=== PATIENT | male | born 1980 | race Caucasian/White ===

== ENCOUNTER 2020-09-25 16:06 | Emergency (ER) | payer BC ==
[2020-09-25 17:53] LABS: HEMOGLOBIN 17.2 gm/dl (14.0-17.5); RED BLOOD COUNT 5.5 M/UL (4.20-5.50); WHITE BLOOD COUNT 10.1 K/UL (4.5-11.0)
[2020-09-25 18:06] LABS: BUN/CREATININE RATIO 11 (0-10)
== END 2020-09-25 20:57 | disposition home or self-care (01) ==
LOC: ER1 16:06
PROVIDERS: Physician Assistant
DX: M54.2 Cervicalgia (principal); R13.10 Dysphagia, unspecified; R07.9 Chest pain, unspecified; Z90.49 Acquired absence of other specified parts of digestive tract; F17.210 Nicotine dependence, cigarettes, uncomplicated
CPT/HCPCS: 70491; 71260; 80053; 82550; 82553; 83605; 83874; 84484; 85025; 93005; 96374; 96375; 99284; J2270; J2405; J7030; Q9963; Q9967